=== PATIENT | female | born 1965 | race Caucasian/White ===

== ENCOUNTER 2022-11-07 13:52 | Outpatient (OUT) | payer SELFPAY | END 2022-11-07 13:53 | disposition home or self-care (01) | LOC: PST 13:52 | PROVIDERS: Visit Provider Surgery | DX: Z01.818 Encounter for other preprocedural examination (principal); R19.5 Other fecal abnormalities ==

== ENCOUNTER 2022-11-15 08:33 | Day surgery (SDC) | payer OTHER, SELFPAY ==
--- NOTE | 2022-11-15 | OP_ITS ---
OPERATION DATE: ??11/15/2022 PREOPERATIVE DIAGNOSIS:? Positive Cologuard. POSTOPERATIVE DIAGNOSIS:? Cecal and rectal 2 mm polyps. PROCEDURE:? Colonoscopy to cecum with cold biopsy forceps polypectomy x2. SURGEON:? Jacobo Mcgregor M.D. ANESTHESIA:? Monitored anesthesia care. ESTIMATED BLOOD LOSS:? Less than 1 mL. INDICATIONS AND CONSENT:? Patient is a 56-year-old female presents for colorectal screening.? Indications, risks, benefits, alternatives of proceeding with colonoscopy were explained extensively to the patient, including the risks of bleeding, colon perforation or anesthetic complications.? All of her questions were answered.? Informed consent was obtained. PROCEDURE:? Patient brought to the operating room, placed in the left lateral decubitus position.? Monitored anesthesia care was provided.? Rectal exam was performed which showed no masses or blood.? The scope was inserted into the anal canal.? Under direct visualization was advanced.? With the aid of abdominal compression, it was advanced to the cecum where cecal markings were clearly identified.? There was noted to be a good prep.? Upon withdrawal of the scope, mucosal surfaces were carefully examined.? Within the cecum, there was noted to be a 2 mm sessile polyp that was removed with cold biopsy forceps with good hemostasis.? Within the rectum, there was also noted to be a 2 mm sessile that was also removed with cold biopsy forceps with good hemostasis.? There was no significant diverticulosis.? No other mass lesions or inflammatory changes.? The scope was retroflexed in the anal canal.? There were some prominent rectal veins, no significant hemorrhoidal disease.? Scope was then withdrawn.? Patient tolerated procedure well, was sent to recovery room in good condition.follow up colonoscopy likely in 5 years, but may change based on pathology. CC:? Patient?s family physician LUZMARIA
[2022-11-15 08:40] VITALS: BP 167/90; PULSE 88; RESP 18; TEMP 36.6; O2SAT 99; BMI 27.1
[2022-11-15] MEDS: LACTATED RINGER'S SOLUTION 1,000 ML 50 ML IV (09:02)
[2022-11-15 11:40] VITALS: BP 118/59; PULSE 73; RESP 15; TEMP 36.4; O2SAT 100
[2022-11-15 11:56] VITALS: BP 150/89; PULSE 70; RESP 16; O2SAT 98
[2022-11-15 12:10] VITALS: BP 152/86; PULSE 78; RESP 18; O2SAT 98
== END 2022-11-15 12:10 | disposition home or self-care (01) ==
PROVIDERS: PCP Family Medicine; Visit Provider Surgery
PROC: (CPT 45380; principal; 2022-11-15 10:20)
DX: D12.0 Benign neoplasm of cecum (principal); R19.5 Other fecal abnormalities; K62.1 Rectal polyp; R10.9 Unspecified abdominal pain; R56.9 Unspecified convulsions; Z87.440 Personal history of urinary (tract) infections; Z87.442 Personal history of urinary calculi; Z98.84 Bariatric surgery status
CPT/HCPCS: 45380; 88305; J2704